=== PATIENT | male | born 1955 | race Caucasian/White ===

== ENCOUNTER 2022-04-19 07:21 | Day surgery (SDC) | payer OTHER ==
[2022-04-14 15:03] LABS: Absolute Lymphocytes (CBC) 1.3 K/uL (0.7-4.9); Hematocrit 38.6 % (39.6-49.0); Lymphocytes % 28.6 % (15.3-44.8); MCV 79.3 fL (80-100); MPV 8.2 fL (7.6-11.3); RBC Red Blood Cell Count 4.87 M/uL (4.33-5.43)
--- NOTE | 2022-04-14 15:04 | RAD REPORT ---
EXAM DESCRIPTION: RAD - Chest Pa And Lat (2 Views) - 04/14/2022 2:38 pm CLINICAL HISTORY: pre op for surgery Chest pain. COMPARISON: No comparisons FINDINGS: The lungs are clear. The heart is normal in size. No displaced fractures. IMPRESSION: No acute or concerning finding suspected.
[2022-04-14 15:12] LABS: Specific Gravity 1.025 (1.005-1.030); Urine Bilirubin NEGATIVE (Negative); Urine Blood Negative (Negative); Urine Clarity Clear (Clear); Urine Color Yellow (Yellow); Urine Glucose NEGATIVE (Negative); Urine Mucus Slight /HPF (None Seen); Urine Protein TRACE (Negative); Urine RBC <5 /HPF (None Seen); Urine Urobilinogen Normal (Normal)
[2022-04-14 15:14] LABS: Potassium 3.6 mmol/L (3.5-5.1)
[2022-04-14 15:19] LABS: Protime INR 0.88
[2022-04-14 15:30] LABS: SARS-CoV-2 Antigen Rapid Res Negative (Negative)
--- NOTE | 2022-04-15 11:42 | EKG ---
Test Date: 2022-04-14 Test Time: 14:30:14 Identity Access Management Architect: OLIVA MEASUREMENT RESULTS: Intervals: Rate: 58 NE: 162 QRSD: 98 QT: 418 QTc: 410 [place]: P: 37 NE: 162 QRS: -33 T: 21 INTERPRETIVE STATEMENTS: Sinus bradycardia with premature atrial complexes Left axis deviation Abnormal ECG No previous ECG available for comparison Electronically Signed On 04-15-22 11:39:02 CDT by Bj Perez
[2022-04-19] MEDS ORDERED: CEFAZOLIN SODIUM 1 GM/VIAL ONE (07:46)
[2022-04-19] MEDS ORDERED: Ringers Lactate 1,000 ML IV ONE (07:46)
[2022-04-19] MEDS ORDERED: FENTANYL CITR 100 MCG/2 ML ONE (08:00)
[2022-04-19] MEDS ORDERED: ONDANSETRON 4 MG/2 ML VIAL ONE (08:00)
[2022-04-19] MEDS ORDERED: MIDAZOLAM HCL 2 MG/2 ML INJ ONE (08:00)
[2022-04-19] MEDS ORDERED: LIDOCAINE 1% MPF 5 ML VIAL ONE (08:00)
[2022-04-19] MEDS ORDERED: propofoL 200 MG/20 ML VIAL IV ONE (08:00)
[2022-04-19] MEDS ORDERED: dexAMETHasone 10 MG/ML VIAL ONE (08:50)
[2022-04-19 10:32] VITALS: BP 130/82; TEMP 97.6; O2SAT 100
--- NOTE | 2022-04-19 14:01 | OP ---
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 Principal Procedures: 1.Transrectal ultrasound-guided placement of fiducial markers (two). 2.Transrectal ultrasound-guided insertion of SpaceOAR gel. Indication For Procedure: Mr. Diaz presented to the [facility] with high risk prostate cancer id entified on biopsy for an elevated PSA. He was counseled extensively and ultimately elected to proce ed with radiation therapy plus androgen deprivation therapy. The androgen deprivation therapy was in itiated and he presents for SpaceOAR gel insertion and fiducial markers placement prior to initiation of definitive external beam radiation. Procedure In Detail: The patient was consented in the preoperative holding area before being transfe rred to the operative suite where general anesthesia was induced. He was given Ancef 2 g IV antimicr obial prophylaxis and Pneumoboots were provided for DVT prophylaxis. He was placed in the high litho madison position, padded and secured to the table appropriately. His genitalia was elevated out of the perineal region using an Ioban drape. Betadine was used to prep the perineal region and then the tra nsrectal ultrasound probe was inserted into his rectum with ease. The prostate was visualized and powell rveyed from the seminal vesicles and bladder all the way to the apex and then the ultrasound probe wa s placed into a self-retaining stepper device. I then identified a position within the left hemipros william laterally in the apical mid gland and placed the first fiducial marker. This was done transperi neally. An additional fiducial marker was placed within the right mid gland near the base laterally. I then turned my attention to insertion of the SpaceOAR gel. Using the SpaceOAR needle attached to saline in a syringe, the needle was carefully inserted in the midline of the perineum and did sonia se the perineal fat tissues before passing through the urogenital diaphragm and passing the needle ov er the rectal hump before entering the space of [place]. I was then able to carefully navigate via the [place] space, avoiding entry into the rectum or the capsule of the prostate. Aspirat ion was performed once I reached the mid gland region and was confirmed to be in the mid zone of the prostate ultrasonographically. I then aspirated and no blood was obtained and injected 1 cc of salin e to hydrodissect the region. Once appropriate hydrodissection was achieved, I then removed the syri nge containing saline and exchanged it for the component mixture for the SpaceOAR gel. This was then connected ensuring the needle bevel was turned down appropriately and the SpaceOAR gel was injected into the space of the [place] generating a nice separation between the rectum and the base of t he prostate. The needle was then removed under direct vision and the patient was taken out of the li thotomy position. He was then awakened from general anesthesia, transferred to a stretcher, and then transferred to the recovery room in good condition. Complications: None. Discharge Disposition: He should contact Dr. Barker to begin simulation scheduling for his radiati on therapy to begin. Subsequent followup may be established with me around 3 months after completion of the radiation or if he has particular urologic issues of concern that arise during radiation robby tment. REYNA/RAFA Voice ID: [id number] Report ID: [id number]
== END 2022-04-19 10:38 | disposition home or self-care (01) ==
LOC: OR 07:21
PROVIDERS: ATTEND Urology
PROC: 0VH43YZ Insertion of Other Device into Prostate and Seminal Vesicles, Percutaneous Approach (ICD-10-PCS; principal; 2022-04-19 08:45)
DX: C61 Malignant neoplasm of prostate (principal); I10 Essential (primary) hypertension; K21.9 Gastro-esophageal reflux disease without esophagitis; F17.210 Nicotine dependence, cigarettes, uncomplicated; Z20.822 Contact with and (suspected) exposure to COVID-19
CPT/HCPCS: 93005; 85025; 81001; 80048; 36415; 85610; 71046; 87811; 55874; J2704; J2001; J2250; J3010; J1100; J7120; J2405; J0690